=== PATIENT | male | born 1960 | race Caucasian/White ===

== ENCOUNTER 2019-12-15 09:11 | Emergency (ER) | payer MEDICARE ==
[~2019-12-15] VITALS: Ht 167.6 cm; Wt 68.0 kg
[~2019-12-15 09:11] MED LIST: ACYC800 PO; CARI350 PO; CEPH500 PO; DULO60 PO; HYDACE10B PO; HYDACE5 PO; OXYACE5T PO; OXYACE7.5T PO; PREG300 PO; PROACE100 PO; [UNRECOGNIZED DRUG - OTHER]
[2019-12-15] MEDS ORDERED: OXYC5 PO (09:54)
[2019-12-15 09:58] LABS: BASOPHILS ABSOLUTE AUTO 0.03 K/mm3 (0.00-0.23); BASOPHILS PERCENT AUTO 0 % (0-2); EOSINOPHILS PERCENT AUTO 0 % (0-6); Hematocrit 47.8 % (37.0-53.0); Hemoglobin 16.1 g/dL (13.5-17.5); IMMATURE GRAN ABSOLUTE AUTO 0.06 K/mm3 (0.00-0.10); IMMATURE GRAN PERCENT AUTO 0 % (0-1); LYMPHOCYTES ABSOLUTE AUTO 0.92 K/mm3 (0.84-5.20); LYMPHOCYTES PERCENT AUTO 5 % (21-46); MONOCYTES ABSOLUTE AUTO 1.18 K/mm3 (0.16-1.47); MONOCYTES PERCENT AUTO 6 % (4-13); Mean Corpuscular HGB Conc 33.7 g/dL (31.5-36.5); Mean Corpuscular Volume 86 fL (80-100); Mean Platelet Volume 10.8 fL (9.1-12.4); NEUTROPHILS ABSOLUTE AUTO 16.59 K/mm3 (1.96-9.15); NEUTROPHILS PERCENT AUTO 88 % (41-73); Platelet Count 277 K/mm3 (150-400); RDW Coefficient Variation 13.1 % (11.7-14.2); RDW Standard Deviation 41.1 fL (35.1-46.3); Red Blood Cell Count 5.55 M/mm3 (4.30-5.90); White Blood Cell Count 18.78 K/mm3 (4.00-11.30)
[2019-12-15 10:15] LABS: Alanine Aminotransfer (ALT/SGP 29 U/L (12-78); Albumin, Blood 4.2 g/dL (3.4-5.0); Albumin/Globulin Ratio 1.2 (0.8-1.8); Alk Phos 71 U/L (50-136); Anion Gap 6 mmol/L (6-16); Aspartate Aminotrans (AST/SGOT 29 U/L (12-37); Bilirubin, Total 0.4 mg/dL (0.1-1.0); Blood Urea Nitrogen 17 mg/dL (8-24); Bun/Creatinine Ratio 17.7 (12.0-20.0); CO2, Blood 24 mmol/L (21-32); Calcium, Blood 9.1 mg/dL (8.5-10.1); Chloride, Blood 108 mmol/L (98-108); Creatinine, Blood 0.96 mg/dL (0.60-1.20); Globulin, Blood 3.6 g/dL (2.2-4.0); Glomerular Filtration Rate >60 (60-); Glucose, Blood 145 mg/dL (70-99); Potassium, Blood 4.2 mmol/L (3.5-5.5); Sodium, Blood 138 mmol/L (136-145); Total Protein, Blood 7.8 g/dL (6.4-8.2)
[2019-12-15 11:09] LABS: Source, Urine Clean Catch
[2019-12-15 11:31] LABS: Appearance, Urine Clear (Clear); Bilirubin, Urine Neg (Neg); Blood, Urine 5+ (Neg); Color, Urine Yellow (P-Yellow); Glucose Qualitative, Urine Neg (Neg); Ketones, Urine 3+ (Neg); Leukocyte Esterase, Urine Neg (Neg); Nitrite, Urine Neg (Neg); Protein, Urine 2+ (Neg); Specific Gravity, Urine 1.005 (1.003-1.022); Urobilinogen, Urine NORM (Normal); pH, Urine 6.5 (5.0-8.0)
[2019-12-15 11:55] LABS: Bacteria Rare /hpf; Red Blood Cells, Urine 25-50 /hpf (0-2); Squamous Epithelial Cells Not Seen /hpf (Few); White Blood Cells, Urine 0-2 /hpf (0-5)
[2019-12-15] MEDS ORDERED: Flomax0.4 MG PO (12:39)
== END 2019-12-15 12:49 | disposition home or self-care (01) ==
LOC: ER 09:11
PROVIDERS: Emergency Medicine
DX: N13.2 Hydronephrosis with renal and ureteral calculous obstruction (principal); F17.210 Nicotine dependence, cigarettes, uncomplicated
CPT/HCPCS: 36415; 74177; 80053; 81001; 85025; 96361; 96374-59; 96375; 96376; 99284-25; J1170; J1885; J2405; J7030; Q9967

== ENCOUNTER 2023-08-22 08:26 | Day surgery (SDC) | payer OTHER ==
[~2023-08-22] VITALS: Ht 167.6 cm; Wt 59.9 kg
[2023-08-22] VITALS (34 sets, daily range): BP systolic 108–193; BP diastolic 60–134
[~2023-08-22 08:26] MED LIST changes: +Flomax0.4 MG PO; +OXYC5 PO
[2023-08-22] MEDS ORDERED: Lactated Ringer's 1,000 ML IV SCH (08:45)
[2023-08-22] MEDS ORDERED: Lidocaine HCl 4% 5 ML SDA INH ONE (08:50)
[2023-08-22] MEDS ORDERED: Percocet 5-3251 EACH PO (08:52)
[2023-08-22] MEDS ORDERED: HYDMOR4 PO (08:53)
[2023-08-22] MEDS ORDERED: Lidocaine 2% Jelly Uro-Jet ONE (08:55)
[2023-08-22] MEDS ORDERED: EpiNEPhrine 1 MG/1 ML 1ML Vial ONE (08:55)
[2023-08-22] MEDS ORDERED: Lidocaine 2% 5 ML SDV ONE (08:56)
[2023-08-22] MEDS ORDERED: Midazolam HCL 1 MG/ML 5MLVIAL ONE (09:37)
[2023-08-22] MEDS ORDERED: propofoL 20 ML IV ONE ×2 (09:37→10:34)
[2023-08-22] MEDS ORDERED: FentaNYL Citrate 50 MCG/ML 2 ML Injection ONE (09:37)
--- NOTE | 2023-08-22 09:53 | NUR ---
PRE-PROCEDURE NOTE PT [id number]&OX4, BREATHING RA, VSS, NO COMPLAINTS. Ambulatory in Day Surgery Patient confirms NPO status and agrees with scheduled surgery. Pre-Op teaching done. Pt verbalizes understanding. Patient States Post-Procedure ride home has been arranged.
--- NOTE | 2023-08-22 10:07 | NUR ---
08/22/23 Madelin Toure History, Chart, Medications and Allergies reviewed before start of procedure.LIDOCAINE UPDRAFT DONE PRIOR TO PROCEDURE History, Chart, Medications and Allergies reviewed before start of procedure.up draft lidocaine given prior to start of procedure
--- NOTE | 2023-08-22 12:52 | NUR ---
Patient up to Ambulate independently. Gait steady. Discharge instructions reviewed with patient. Patient verbalizes understanding. Copy given to patient to take home. Discharged via wheelchair to private car for ride home. ALL BELONGINGS RETURNED TO PATIENT.
== END 2023-08-22 22:57 | disposition home or self-care (01) ==
LOC: ORSCMMR 08:26 → ORD 10:00 → ORSCMMR 10:00
PROVIDERS: Internal Medicine Critical Care Medicine
PROC: 0BJ08ZZ Inspection of Tracheobronchial Tree, Via Natural or Artificial Opening Endoscopic (ICD-10-PCS; principal; 2023-08-22 10:00)
DX: R91.8 Other nonspecific abnormal finding of lung field (principal); D02.22 Carcinoma in situ of left bronchus and lung; R06.02 Shortness of breath; F17.210 Nicotine dependence, cigarettes, uncomplicated; Z79.899 Other long term (current) drug therapy
CPT/HCPCS: 88108; 88305; J0171; J2001; J2250; J2704; J3010; J7120